=== PATIENT | female | born 1975 | race Hispanic/Latino ===

== ENCOUNTER 2017-09-26 13:42 | Emergency (ER) | payer OTHER ==
[2017-09-26 14:17] LABS: HCG,QUAL RESULT NEGATIVE (NEGATIVE)
[2017-09-26 14:19] LABS: APPEARANCE,URINE Clear (CLEAR); BILIRUBIN,URINE Negative (NEGATIVE); COLOR,URINE Yellow (YELLOW); GLUCOSE, URINE (UA) Negative (NEGATIVE); KETONES,URINE Negative (NEGATIVE); LEUKOCYTE ESTERASE ,URINE Negative (NEGATIVE); NITRATE,URINE Negative (NEGATIVE); OCCULT BLOOD,URINE Negative (NEGATIVE); PROTEIN,URINE Negative (NEGATIVE); UROBILINOGEN,URINE 0.2 mg/dL (0.2-1.0)
== END 2017-09-26 16:01 | disposition home or self-care (01) ==
LOC: EDH 13:42
DX: R10.9 Unspecified abdominal pain (principal); I10 Essential (primary) hypertension; E11.9 Type 2 diabetes mellitus without complications; Z79.4 Long term (current) use of insulin
CPT/HCPCS: 74176; 81003; 81025

== ENCOUNTER 2021-12-03 16:30 | Emergency (ER) | payer OTHER ==
[~2021-12-03] VITALS: Ht 157.5 cm; Wt 68.0 kg
[2021-12-03 16:32] VITALS: BP 108/72
[2021-12-03] MEDS ORDERED: INSULIN HUMULIN R 100 UNIT/ML 3ML IV ONE ×2 (17:00)
[2021-12-03] MEDS ORDERED: 0.9%NACL 1000ML 1,000 ML IV SCH (17:00)
[2021-12-03 17:13] LABS: APPEARANCE,URINE CLEAR (CLEAR); BILIRUBIN,URINE NEGATIVE (NEGATIVE); COLOR,URINE YELLOW (YELLOW); GLUCOSE, URINE (UA) >=1000 mg/dL (NEGATIVE); KETONES,URINE NEGATIVE (NEGATIVE); LEUKOCYTE ESTERASE ,URINE NEGATIVE (NEGATIVE); NITRATE,URINE NEGATIVE (NEGATIVE); OCCULT BLOOD,URINE MODERATE (NEGATIVE); PROTEIN,URINE NEGATIVE (NEGATIVE); UROBILINOGEN,URINE 0.2 mg/dL (0.2-1.0)
[2021-12-03 17:13] LABS: BASOPHILS % (AUTO) 0.2 % (0.0-5.0); HEMATOCRIT 35.9 % (36-48); LYMPHOCYTES % (AUTO) 29.8 % (21.0-51.0); MEAN CORPUSCULAR HEMOGLOBIN 27.3 pg (27.0-33.0); MEAN CORPUSCULAR HGB CONC 35.4 g/dL (32.0-36.0); MEAN CORPUSCULAR VOLUME 77.2 fL (79-99); MONOCYTES % (AUTO) 6.7 % (3.0-13.0); NEUTROPHILS % (AUTO) 61.8 % (40.0-77.0); PLATELET COUNT (AUTO) 374 K/uL (130-400); RED BLOOD CELL COUNT(AUTO) 4.65 MIL/uL (4.00-5.50); RED CELL DISTRIBUTION WIDTH 12.7 % (11.0-15.5); WHITE BLOOD COUNT (AUTO) 8.4 K/uL (4.8-10.8)
[2021-12-03 17:18] LABS: HCG,QUALITATIVE URINE NEGATIVE (NEGATIVE)
[2021-12-03 17:21] LABS: BACTERIA,URINE Rare /HPF (None Seen); RBC,URINE None Seen /HPF (0-1); SQUAMOUS EPITHELIAL CELL,UR None Seen /HPF (0-2); WBC,URINE 0-1 /HPF (0-1)
[2021-12-03 17:27] LABS: ALBUMIN 3.5 g/dL (3.5-5.0); CRP QUANTITATIVE 6.7 mg/L (0.00-9.0); POTASSIUM 3.6 mmol/L (3.5-5.1); TOTAL PROTEIN, SERUM 7.4 g/dL (6.0-8.3)
== END 2021-12-03 18:32 | disposition home or self-care (01) ==
LOC: EDH 16:30
DX: E11.65 Type 2 diabetes mellitus with hyperglycemia (principal); E78.00 Pure hypercholesterolemia, unspecified; I10 Essential (primary) hypertension
CPT/HCPCS: 99283; 96374; 96361; 84484; 80053; 85025; 82948 ×2; 82010; 86140; 81001; 81025; 36415; J1815; J7030

== ENCOUNTER 2022-02-16 08:42 | Emergency (ER) | payer OTHER ==
[~2022-02-16] VITALS: Ht 152.4 cm; Wt 71.2 kg
[2022-02-16 09:05] LABS: BASOPHILS % (AUTO) 0.4 % (0.0-5.0); EOSINOPHILS % (AUTO) 2.4 % (0.0-8.0); HEMATOCRIT 36.5 % (36-48); LYMPHOCYTES % (AUTO) 35.2 % (21.0-51.0); MEAN CORPUSCULAR HEMOGLOBIN 25.1 pg (27.0-33.0); MEAN CORPUSCULAR HGB CONC 33.4 g/dL (32.0-36.0); MEAN CORPUSCULAR VOLUME 75.1 fL (79-99); MONOCYTES % (AUTO) 9.5 % (3.0-13.0); NEUTROPHILS % (AUTO) 52.2 % (40.0-77.0); PLATELET COUNT (AUTO) 383 K/uL (130-400); RED BLOOD CELL COUNT(AUTO) 4.86 MIL/uL (4.00-5.50); RED CELL DISTRIBUTION WIDTH 13.1 % (11.0-15.5); WHITE BLOOD COUNT (AUTO) 7.1 K/uL (4.8-10.8)
[2022-02-16 09:19] LABS: APPEARANCE,URINE CLEAR (CLEAR); BILIRUBIN,URINE NEGATIVE (NEGATIVE); COLOR,URINE YELLOW (YELLOW); GLUCOSE, URINE (UA) >=1000 mg/dL (NEGATIVE); KETONES,URINE NEGATIVE (NEGATIVE); LEUKOCYTE ESTERASE ,URINE NEGATIVE Leu/uL (NEGATIVE); NITRATE,URINE NEGATIVE (NEGATIVE); OCCULT BLOOD,URINE NEGATIVE (NEGATIVE); PROTEIN,URINE NEGATIVE (NEGATIVE); UROBILINOGEN,URINE 0.2 mg/dL (0.2-1.0)
[2022-02-16 09:21] LABS: ALBUMIN 3.4 g/dL (3.5-5.0); CREATININE 0.9 mg/dL (0.5-1.5); POTASSIUM 3.9 mmol/L (3.5-5.1); TOTAL PROTEIN, SERUM 7.5 g/dL (6.0-8.3)
[2022-02-16 09:33] LABS: BACTERIA,URINE Rare /HPF (None Seen); RBC,URINE None Seen /HPF (0-1); SQUAMOUS EPITHELIAL CELL,UR 0-2 /HPF (0-2); WBC,URINE None Seen /HPF (0-1)
[2022-02-16] MEDS ORDERED: INSULIN HUMULIN R 100 UNIT/ML 3ML ONE (10:18)
[2022-02-16] MEDS ORDERED: KETOROLAC 15MG/ML VIAL (15MG/ML) ONE (10:18)
[2022-02-16] MEDS ORDERED: 0.9%NACL 1000ML 1,000 ML IV ONE ×2 (10:19→10:30)
[2022-02-16] MEDS ORDERED: INSULIN HUMULIN R 100 UNIT/ML 3ML IV ONE (10:30)
[2022-02-16] MEDS ORDERED: KETOROLAC 15MG/ML VIAL (15MG/ML) IV ONE (10:30)
[2022-02-16] MEDS ORDERED: IOHEXOL 350 MG/ML 100ML INFUS..BTL IV ONE (12:39)
[2022-02-16 13:25] VITALS: BP 154/83
[2022-02-16] MEDS ORDERED: IBUP-2070 PO (13:45)
[2022-02-16] MEDS ORDERED: FAMO-136 PO (13:45)
== END 2022-02-16 13:56 | disposition home or self-care (01) ==
LOC: EDH 08:42
DX: R10.11 Right upper quadrant pain (principal); E11.9 Type 2 diabetes mellitus without complications; K76.89 Other specified diseases of liver; E78.00 Pure hypercholesterolemia, unspecified; I10 Essential (primary) hypertension; Z98.890 Other specified postprocedural states
CPT/HCPCS: 99285; 74177; 96374; 76705; 96361; 96375; 80053; 83690; 85025; 82948; 81001; 36415; J1815; J7030; J1885; Q9967

== ENCOUNTER 2025-01-01 05:10 | Emergency (ER) | payer BC ==
[~2025-01-01] VITALS: Ht 162.6 cm; Wt 67.6 kg
[~2025-01-01 05:10] MED LIST: FAMO-136 PO; IBUP-1492 PO
[2025-01-01 05:29] LABS: ADD UA MICROSCOPIC YES; APPEARANCE,URINE CLEAR (CLEAR); GLUCOSE, URINE (UA) 200 mg/dL (NEGATIVE); HCG,QUALITATIVE URINE NEGATIVE (NEGATIVE); LEUKOCYTE ESTERASE ,URINE NEGATIVE Leu/uL (NEGATIVE); NITRATE,URINE NEGATIVE (NEGATIVE); OCCULT BLOOD,URINE NEGATIVE (NEGATIVE)
[2025-01-01 05:30] LABS: SQUAMOUS EPITHELIAL CELL,UR FEW /HPF (0-2)
[2025-01-01 05:34] LABS: IMMATURE GRANULOCYTE ABSOLUTE 0.02 K/uL (0-1); NUCLEATED RED BLOOD CELLS 0.0 % (0.0-0.19); PLATELET COUNT (AUTO) 419 K/uL (130-400); RED BLOOD CELL COUNT(AUTO) 4.75 MIL/uL (4.00-5.50); RED CELL DISTRIBUTION WIDTH 13.8 % (11.0-15.5); WHITE BLOOD COUNT (AUTO) 7.5 K/uL (4.8-10.8)
--- NOTE | 2025-01-01 05:34 | ERN ---
General Chief Complaint: Painful Urination Stated Complaint: PAIN WITH URINATION Time Seen by MD: 05:18 Source: patient, family History of Present Illness Initial Comments 49-year-old female with hypertension diabetes and hypercholesterolemia comes in with several days of painful urination fevers chills and a headache. Allergies: Coded Allergies: No Known Allergies (Unverified Allergy, Unknown, 11/09/13) Home Meds Active Scripts Ibuprofen (Ibuprofen) 600 Mg Tablet, 600 MG PO Q6H PRN for PAIN, #30 TAB 0 Refills Prov:SYBIL PERKINS MD 02/16/22 Famotidine (Pepcid) 20 Mg Tablet, 20 MG PO BID, #30 TAB 0 Refills Prov:SYBIL PERKINS MD 02/16/22 Past Medical History Past Medical History: Diabetes-Type II, High Cholesterol, Hypertension Past Surgical History: BTL Family History Family History: Negative Social History Social History: Negative, Lives with family Constitutional: (+) chills, (+) fever EENTM: (-) eye pain, (-) blurred vision, (-) tearing, (-) double vision, (-) ear pain, (-) ear discharge, (-) nose pain, (-) nose congestion, (-) throat pain, (-) Throat swelling, (-) mouth pain, (-) tooth pain, (-) mouth swelling, (-) other documentation Respiratory: (-) cough, (-) orthopnea, (-) short of breath, (-) stridor, (-) wheezing, (-) other documentation Cardiovascular: (-) chest pain, (-) edema, (-) palpitations, (-) syncope, (-) d yspnea on exertion, (-) other documentation Gastrointestinal/Abdominal: (-) nausea, (-) vomiting, (-) diarrhea, (-) abdominal pain, (-) abdominal distention, (-) constipation, (-) rectal bleeding, (-) dark stool/melena, (-) other documentation Genitourinary: (+) dysuria Neuro: (+) headache Physical Exam General Appearance: (+) mild distress Orientation: (+) alert, (+) oriented x 3 Head/Face Trauma: No Eye: bilateral eye normal inspection, bilateral eye PERRL, bilateral eye EOMI Ear, Nose, Throat: (+) hearing grossly normal, (+) normal ENT inspection, (+) moist mucous membraine Neck: (+) normal inspection, (+) supple, (+) full range of motion Respiratory: (+) chest non-tender, (+) lungs clear, (+) well ventilated Heart: (+) regular, (+) no gallop Vascular: (+) no edema, (+) normal peripheral pulse Gastrointestinal: (+) soft, (+) non-tender, (+) bowel sound present Results Laboratory and Microbiology Lab and Micro Result Laboratory Tests Test 01/01/25 05:20 01/01/25 05:28 Urine Color COLORLESS (YELLOW) Urine Appearance CLEAR (CLEAR) Urine pH 6.5 (5.0-8.0) Urine Specific [place] 1.005 (1.001-1.031) Urine Protein NEGATIVE mg/dL (NEGATIVE) Urine Glucose (UA) 200 mg/dL (NEGATIVE) H Urine Ketones NEGATIVE mg/dL (NEGATIVE) Urine Occult Blood NEGATIVE (NEGATIVE) Urine Nitrate NEGATIVE (NEGATIVE) Urine Bilirubin NEGATIVE mg/dL (NEGATIVE) Urine Urobilinogen 0.2 mg/dL (0.2-1.0) Urine Leukocyte Esterase NEGATIVE [place]/uL Urine RBC 0-1 /HPF (0-1) Urine WBC 0-1 /HPF (0-1) Urine Squamous Epithelial Cells FEW /HPF (0-2) Urine Bacteria RARE /HPF (None Seen) Urine HCG, Qualitative NEGATIVE (NEGATIVE) White Blood Count 7.5 K/uL (4.8-10.8) Red Blood Count 4.75 MIL/uL (4.00-5.50) Hemoglobin 12.0 g/dL (12.0-16.0) Hematocrit 36.4 % (36-48) Mean Corpuscular Volume 76.6 fL (79-99) L Mean Corpuscular Hemoglobin 25.3 pg (27.0-33.0) L Mean Corpuscular Hemoglobin Concent 33.0 g/dL (32.0-36.0) Red Cell Distribution Width 13.8 % (11.0-15.5) Platelet Count 419 K/uL (130-400) H Mean Platelet Volume 9.5 fL (7.5-10.5) Immature Granulocyte % (Auto) 0.3 % (0-1) Neutrophils (%) (Auto) 58.2 % (40.0-77.0) Lymphocytes (%) (Auto) 31.5 % (21.0-51.0) Monocytes (%) (Auto) 7.7 % (3.0-13.0) Eosinophils (%) (Auto) 1.9 % (0.0-8.0) Basophils (%) (Auto) 0.4 % (0.0-5.0) Neutrophils # (Auto) 4.3 K/uL (1.8-7.7) Lymphocytes # (Auto) 2.4 K/uL (1.0-4.8) Monocytes # (Auto) 0.6 K/uL (0.1-1.0) Eosinophils # (Auto) 0.14 K/uL (0.00-0.70) Basophils # (Auto) 0.03 K/uL (0.00-0.20) Absolute Immature Granulocyte (auto 0.02 K/uL (0-1) Nucleated Red Blood Cells 0.0 % (0.0-0.19) Sodium Level 131 mmol/L (136-145) L Potassium Level 3.7 mmol/L (3.5-5.1) Chloride Level 97 mmol/L (101-111) L Carbon Dioxide Level 27 mmol/L (21-32) Blood Urea Nitrogen 6 mg/dL (7-18) L Creatinine 0.8 mg/dL (0.5-1.0) Glomerular Filtration Rate Calc 89 mL/min (>90) Random Glucose 284 mg/dL (70-105) H Total Calcium 8.4 mg/dL (8.5-10.1) L MDM MDM: Differential diagnosis: UTI, dehydration, PID, Rationale: Tests considered and ordered secondary to shared decision making include: Previous outside records reviewed: Old ER visits. Risk of complication and/or morbidity or mortality of patient management: None Medications-Per medication reconciliation Need for hospitalization: Patient does meet criteria for hospitalization. Need for emergency major/minor surgery: No There are no social concerns with this patient. Prescription drug management Prescriptions will include symptomatic care Patient's prior external medical records from other ER visits were reviewed by me as indicated. Prior testing and results from previous visits were reviewed. Prior tests were taken into account with medical decision making and resource utilization, independent historian/historians were used to obtain complete medical history. I independently interpreted the test that were performed, results were reviewed by me and considered findings on radiology if ordered. With the IV fluids the patient's headache has gone but she still has painful urination. Her chemistry panel shows mild hyponatremia mild hypochloremia. A CBC is normal. UA is negative for infection. I clarified with the patient if it was free urine that was hurting or her vagina and she stated it was her vagina. I will discharge her with a prescription of Flagyl and a single dose of Diflucan in case it is a yeast infection. Also patient is hypertensive I will give her 20 mg of hydralazine. ED Course Orders Procedure Category Date Status Time Lactated Ringers PHA 01/01/25 Complete 1000ml (Lactated 05:18 Basic Metabolic Panel LAB 01/01/25 Complete 05:18 Cbc With Differential LAB 01/01/25 Complete 05:18 ,Urine Test LAB 01/01/25 Complete 05:18 Urinalysis Profile LAB 01/01/25 Complete 05:18 Ketorolac PHA 01/01/25 Complete Tromethamine 30mg/Ml 05:30 Ketorolac PHA 01/01/25 Complete Tromethamine 30mg/Ml 06:00 Hydralazine 20mg Inj PHA 01/01/25 Complete (Apresoline 20mg In 06:30 Current Medications Medications (Trade) Dose Ordered Sig/Mark Route PRN Reason Start Time Stop Time Status Last Admin Dose Admin Hydralazine HCl (APRESOLine 20MG INJ) 20 mg ONCE ONCE IV 01/01/25 06:30 01/01/25 06:31 DC 01/01/25 06:54 Ketorolac Tromethamine (toRADol) 30 mg ONCE ONCE IVP 01/01/25 05:30 01/01/25 05:31 DC 01/01/25 05:35 Ketorolac Tromethamine (toRADol) 30 mg ONCE ONCE IVP 01/01/25 06:00 01/01/25 06:01 DC Lactated Ringer's (Lactated Ringers 1000ml) 1,000 ml BOLUS STAT IV 01/01/25 05:18 01/01/25 05:25 DC 01/01/25 05:36 Vital Signs Date Time Temp Pulse Resp B/P (MAP) Pulse Ox O2 Delivery O2 Flow Rate FiO2 01/01/25 06:52 98.2 78 18 166/56 99 Room Air* 0 21 01/01/25 05:12 98.1 85 18 172/94 99 Room Air 0 DX & DISP Disposition: Discharge Departure Impression: Primary Impression: Headache Additional Impression: Bacterial vaginosis Condition: Stable Scripts Fluconazole (Fluconazole) 150 Mg Tablet 1 TAB PO ONCE for 1 Day, #1 TAB 0 Refills Prov: DARRON SOTO MD 01/01/25 Metronidazole (Metronidazole) 250 Mg Tablet 1 TAB PO TID for 7 Days, #21 TAB 0 Refills Prov: DARRON SOTO MD 01/01/25 Referrals: RONN DE LEÓN DO (PCP) DARRON SOTO MD Jan 01, 2025 05:34
[2025-01-01] MEDS: LACTATED RINGERS 1000ML IV STA (05:36)
[2025-01-01 06:06] LABS: CREATININE 0.8 mg/dL (0.5-1.0); GLOMERULAR FILTR. RATE CALC 89.0 mL/min (>90); GLUCOSE,RANDOM 284.0 mg/dL (70-105); SODIUM SERUM 131.0 mmol/L (136-145); UREA NITROGEN, BLOOD 6.0 mg/dL (7-18)
[2025-01-01 06:52] VITALS: TEMP 98.2
[2025-01-01] MEDS ORDERED: METR-361 PO (06:58)
[2025-01-01] MEDS ORDERED: FLUC150T48 PO (06:58)
[2025-01-01 08:22] VITALS: BP 142/84; PULSE 80; RESP 20; O2SAT 98
== END 2025-01-01 09:35 | disposition home or self-care (01) ==
LOC: EDH 05:10
DX: R51.9 Headache, unspecified (principal); N76.0 Acute vaginitis; B96.89 Other specified bacterial agents as the cause of diseases classified elsewhere; E11.9 Type 2 diabetes mellitus without complications; E78.00 Pure hypercholesterolemia, unspecified; I10 Essential (primary) hypertension; Z98.51 Tubal ligation status
CPT/HCPCS: 99284; 96374; 96375; 80048; 85025; 81001; 81025; 36415; J1885; J0360